=== PATIENT | female | born 1955 ===

== ENCOUNTER 2017-12-16 22:41 | Emergency (ER) | payer MEDICARE ==
[2017-12-16 22:47] VITALS: PULSE 63; O2SAT 98
[2017-12-16 23:53] LABS: ALB/GLOB RATIO 1.3 (1.0-2.1); ALT/SGPT 43 U/L (9-52); AST/SGOT 53 U/L (14-36); BLOOD UREA NITROGEN 22 mg/dl (7-17); CALCIUM 9.5 mg/dL (8.4-10.2); GFR AFRICAN-AMERICAN > 60; GFR NON-AFRICAN AMERICAN > 60
[2017-12-16 23:54] LABS: HEMOGLOBIN 13.2 g/dL (12.0-16.0); MEAN CELL VOLUME 102.7 fl (81.0-99.0); MEAN CORPUSCULAR HEMOGLOBIN 35.9 pg (27.0-31.0); MEAN CORPUSCULAR HGB CONC 34.9 g/dL (33.0-37.0); RBC 3.69 Mil/uL (3.80-5.20); RED CELL DISTRIBUTION WIDTH 12.9 % (11.5-14.5); WHITE BLOOD COUNT 3.9 K/uL (4.8-10.8)
[2017-12-16 23:58] LABS: SQUAMOUS EPITHIAL < 1 /hpf (0-5); URINE BILIRUBIN NEGATIVE (NEGATIVE); URINE BLOOD NEGATIVE (NEGATIVE); URINE CLARITY CLEAR (Clear); URINE COLOR YELLOW (YELLOW); URINE GLUCOSE (UA) NEG (Normal); URINE LEUKOCYTE ESTERASE NEG Leu/uL (Negative); URINE PROTEIN NEGATIVE (NEGATIVE)
[2017-12-17 00:10] LABS: BARBITURATES, UR NEGATIVE (NEGATIVE); BENZODIAZEPINES, UR NEGATIVE (NEGATIVE); OPIATES, UR NEGATIVE (NEGATIVE); PHENCYCLIDINE, UR NEGATIVE (NEGATIVE)
[2017-12-17] MEDS ORDERED: Potassium Chloride 10 mEq ER Tab PO STA (03:14)
[2017-12-17] MEDS ORDERED: Potassium Chloride 20 mEq ER Tab PO ONE (03:48)
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
[2017-12-17 04:54] VITALS: BP 166/73; RESP 18; TEMP 97.8
--- NOTE | 2017-12-17 08:39 | RAD ---
[place] [facility] [place]: No prior. FINDINGS: LUNGS: Trace fibrotic changes in the right apex. No acute infiltrate bilaterally. PLEURA: No significant pleural effusion identified, no pneumothorax apparent. CARDIOVASCULAR: Normal. OSSEOUS STRUCTURES: No significant abnormalities. VISUALIZED UPPER ABDOMEN: Normal. OTHER FINDINGS: None. IMPRESSION: Trace right apical fibrotic changes. Remaining lung diaz clear. No acute cardiopulmonary changes grossly evident.
--- NOTE | 2017-12-17 09:44 | CARD ---
APPROVED REPORT EKG Measurement Heart [id number] <Conclusion> Sinus bradycardia with 1st degree AV block Possible septal infarct, age undetermined Abnormal ECG
== END 2017-12-17 05:02 | disposition home or self-care (01) ==
LOC: H.ER 22:41
DX: F20.9 Schizophrenia, unspecified (principal); E78.00 Pure hypercholesterolemia, unspecified; I10 Essential (primary) hypertension; J45.909 Unspecified asthma, uncomplicated

== ENCOUNTER 2018-02-17 16:05 | Inpatient (IN) | payer MEDICARE ==
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
[2018-02-17 17:18] LABS: BASO % 0.6 % (0.0-2.0); EOS # 0.1 K/uL (0.0-0.7); EOS % 3.1 % (0.0-4.0); HEMOGLOBIN 13.6 g/dL (12.0-16.0); LYMPH # 1.5 K/uL (1.0-4.3); LYMPH % 35.7 % (20.0-40.0); MEAN CELL VOLUME 102.3 fl (81.0-99.0); MEAN CORPUSCULAR HEMOGLOBIN 34.7 pg (27.0-31.0); MEAN CORPUSCULAR HGB CONC 33.9 g/dL (33.0-37.0); MEAN PLATELET VOLUME 10.2 fl (7.2-11.7); MONO # 0.4 K/uL (0.0-0.8); MONO % 9.4 % (0.0-10.0); NEUT # 2.2 K/uL (1.8-7.0); NEUT % 51.2 % (50.0-75.0); RBC 3.92 Mil/uL (3.80-5.20); RED CELL DISTRIBUTION WIDTH 13.3 % (11.5-14.5); WHITE BLOOD COUNT 4.2 K/uL (4.8-10.8)
[2018-02-17 17:21] LABS: ALB/GLOB RATIO 1.2 (1.0-2.1); ALBUMIN 4.1 g/dL (3.5-5.0); ALT/SGPT 29 U/L (9-52); AST/SGOT 44 U/L (14-36); BLOOD UREA NITROGEN 22 mg/dl (7-17); CALCIUM 9.8 mg/dL (8.4-10.2); GFR AFRICAN-AMERICAN > 60; GFR NON-AFRICAN AMERICAN > 60
[2018-02-17 17:39] LABS: BARBITURATES, UR NEGATIVE (NEGATIVE); BENZODIAZEPINES, UR NEGATIVE (NEGATIVE); OPIATES, UR POSITIVE (NEGATIVE); PHENCYCLIDINE, UR NEGATIVE (NEGATIVE)
[2018-02-17] MEDS ORDERED: Potassium Chloride 20 mEq ER Tab PO STA (17:45)
[2018-02-17 20:19] VITALS: O2SAT 98
[2018-02-17] MEDS ORDERED: Magnesium Hydroxide Susp 30 ml UD PO PRN (21:43)
[2018-02-17] MEDS ORDERED: Alum-Mag Hydrox-Simethicone Susp (30 mL) PO PRN (21:43)
[2018-02-17] MEDS ORDERED: Bismuth Subsalicylate 262 mg/15 ml Sus (240 ml) PO PRN (21:43)
--- NOTE | 2018-02-17 22:06 | PCM.BM ---
Treatment Plan Problems - Problems identified on initial assessmt Delusions Date Initiated: 02/17/18 Time Initiated: 22:04 Assessment reference: NA Status: Active Medication nonadherence Date Initiated: 02/17/18 Time Initiated: 22:04 Assessment reference: NA Status: Active Treatment assets and liabiliti Patient Assests: self-reliant, ADL independent, negotiates basic needs Patient Liabilities: live alone, medical problems - Milieu Protocol Maintain good personal hygiene: every shift Encourage regular showers, every shift Remind patient to perform daily oral care, every shift Assist patient to perform ADL's Maintain personal safety: daily Educate patient to report safety concerns to staff, daily Monitor environment for contraband/sharps Medication safety: Monitor for expected outcome, potential side effects: daily, Assess barriers to learning: daily, Assess readiness for medication education: daily
[2018-02-17] MEDS ORDERED: ADVAIR INH PRN (22:54)
[2018-02-17] MEDS ORDERED: Albuterol HFA 90 mcg/actuation (8 g) IH PRN (22:54)
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
[2018-02-18] MEDS ORDERED: Potassium Chloride 20 mEq ER Tab PO ONE (00:29)
[2018-02-18 06:15] VITALS: BP 191/78; PULSE 59
[2018-02-18 06:25] VITALS: RESP 19; TEMP 98.1
[2018-02-18] MEDS ORDERED: PRO AIR HFA 8.5GM INHALER(FOR OR USE ONLY) IH PRN (07:00)
[2018-02-18 07:26] LABS: BLOOD UREA NITROGEN 22 mg/dl (7-17); CALCIUM 9.6 mg/dL (8.4-10.2); GFR AFRICAN-AMERICAN > 60; GFR NON-AFRICAN AMERICAN > 60; HDL CHOLESTEROL 104 MG/DL (30-70)
[2018-02-18 07:45] LABS: IRON 86 ug/dL (37-170)
[2018-02-18 07:56] LABS: % IRON SATURATION 27 % (20-55); TOTAL IRON BINDING CAPACITY 316 ug/dL (250-450)
[2018-02-18 07:57] LABS: LDL CHOLESTEROL 47 mg/dL (0-129)
[2018-02-18 08:07] LABS: T4 11.6 ug/dl (5.5-11.0)
[2018-02-18] MEDS ORDERED: Fluticasone-Salmeterol 250-50mcg Diskus INH SCH (09:00)
[2018-02-18] MEDS ORDERED: Lidocaine 2% GEL TOP SCH (09:00)
[2018-02-18] MEDS ORDERED: Lidocaine 2.5% OINTMENT EXT SCH (09:00)
--- NOTE | 2018-02-18 09:34 | PCM.PYCHDC ---
Discharge Summary - Discharge Note Reason for Hospitalization: Patient was discharged to the ER for acute medical management before being evaluated by lead technical writer. Patient had a critical Troponin 0.2860. As per initial HPI: Attending: Ayush King MD PMD: Dr Sanchez/Terese Alcala Reason for Consult: management of HTN/Migraine Chief Complaint: Paranoid Behavior The patient was seen and examined in the Psychiatric unit HPI: The Hx is obtained from the medical records and the patient. She is a 62 years old female living alone with hx of HTN, Asthma and Migraine, who sent to the ED by the [place] police Department for Psychiatric evaluation. The PD was called to the home because the patient was reporting being harassed. they intercept her calls, put devices in her bed making it shake when she lie on it and despite changing the lock, they enter her apartment. She admitted that no one else could hear or see the harassers. No complaints of nausea, vomits, Chest Pain , SOb nor fever. PMH: Asthma, HTN, Hypercholesterolemia, Migraine; non compliant with mediction PSH: Endartectomy SH: No alcohol ingestion, No illegal drug use; No smoking; Live alone FH: States: Unknown Family Hx Allergies: Chocolate Flavor; Nuts; Shell fish Medication: Reviewed Laboratory Data: Abnormal Lab Results 02/17/18 02/17/18 02/17/18 17:05 17:05 17:05 WBC 4.2 L RBC 3.92 Hgb 13.6 Hct 40.1 MCV 102.3 H MCH 34.7 H MCHC 33.9 RDW 13.3 Plt Count 128 L MPV 10.2 Neut % (Auto) 51.2 Lymph % (Auto) 35.7 [place] % (Auto) 9.4 Eos % (Auto) 3.1 Baso % (Auto) 0.6 Neut # (Auto) 2.2 Lymph # (Auto) 1.5 [place] # (Auto) 0.4 Eos # (Auto) 0.1 Baso # (Auto) 0.0 Sodium 142 Potassium 3.1 L Chloride 103 Carbon Dioxide 33 H Anion Gap 9 L BUN 22 H Creatinine 0.7 Est GFR ( Amer) > 60 Est GFR (Non-Af Amer) > 60 Random Glucose 78 Calcium 9.8 Phosphorus 3.6 Magnesium 1.7 Iron TIBC % Saturation Ferritin Total Bilirubin 0.8 AST 44 H ALT 29 Alkaline Phosphatase 84 Troponin I Total Protein 7.5 Albumin 4.1 Globulin 3.4 Albumin/Globulin Ratio 1.2 Triglycerides Cholesterol LDL Cholesterol Direct HDL Cholesterol Vitamin B12 Thyroxine (T4) TSH 3rd Generation Urine Opiates Screen Positive H Urine Methadone Screen Negative Ur Barbiturates Screen Negative Ur Phencyclidine Scrn Negative Ur Amphetamines Screen Negative U Benzodiazepines Scrn Negative U Oth Cocaine Metabols Negative U Cannabinoids Screen Negative Alcohol, Quantitative < 10 02/18/18 02/18/18 06:30 06:30 WBC RBC Hgb Hct MCV MCH MCHC RDW Plt Count MPV Neut % (Auto) Lymph % (Auto) [place] % (Auto) Eos % (Auto) Baso % (Auto) Neut # (Auto) Lymph # (Auto) [place] # (Auto) Eos # (Auto) Baso # (Auto) Sodium 143 Potassium 3.5 L Chloride 103 Carbon Dioxide 34 H Anion Gap 10 BUN 22 H Creatinine 0.7 Est GFR ( Amer) > 60 Est GFR (Non-Af Amer) > 60 Random Glucose 80 Calcium 9.6 Phosphorus Magnesium Iron 86 TIBC 316 % Saturation 27 Ferritin 117.0 Total Bilirubin AST ALT Alkaline Phosphatase Troponin I 0.2860 H* Total Protein Albumin Globulin Albumin/Globulin Ratio Triglycerides 29 Cholesterol 187 LDL Cholesterol Direct 47 HDL Cholesterol 104 H Vitamin B12 969 H Thyroxine (T4) 11.6 H TSH 3rd Generation 2.69 Urine Opiates Screen Urine Methadone Screen Ur Barbiturates Screen Ur Phencyclidine Scrn Ur Amphetamines Screen U Benzodiazepines Scrn U Oth Cocaine Metabols U Cannabinoids Screen Alcohol, Quantitative Consultations:: List each consultation separately and include: 1. Reason for request. 2. Findings. 3. Follow-up Summary of Hospital Course include:: 1. Description of specific treatment plan utilized for patients during their course of treatmen. 2. Summarize the time- course for resolution of acute symptoms and/or regressed behaviors. 3. Describe issues identified and worked on during hospitalization. 4. Describe medication utilized. 5. Describe medical problems identified and treated. 6. Reassessment of suicide risk - Final Diagnosis (DSM 5) Condition upon Discharge: STABLE Disposition: Trans to Other Acute Care Hosp
--- NOTE | 2018-02-18 09:34 | PCM.PSYCH ---
Initial Psychiatric Evaluation - Initial Psychiatric Evaluation Patient's Reaction to Hospitalization: Patient was discharged to the ER for acute medical management before being evaluated by insurance writer. Patient had a critical Troponin 0.2860. As per initial HPI: Attending: Ayush King MD PMD: Dr Sanchez/Terese Alcala Reason for Consult: management of HTN/Migraine Chief Complaint: Paranoid Behavior The patient was seen and examined in the Psychiatric unit HPI: The Hx is obtained from the medical records and the patient. She is a 62 years old female living alone with hx of HTN, Asthma and Migraine, who sent to the ED by the [place] police [employer] for Psychiatric evaluation. The PD was called to the home because the patient was reporting being harassed. they intercept her calls, put devices in her bed making it shake when she lie on it and despite changing the lock, they enter her apartment. She admitted that no one else could hear or see the harassers. No complaints of nausea, vomits, Chest Pain , SOb nor fever. PMH: Asthma, HTN, Hypercholesterolemia, Migraine; non compliant with mediction PSH: Endartectomy SH: No alcohol ingestion, No illegal drug use; No smoking; Live alone FH: States: Unknown Family Hx Allergies: Chocolate Flavor; Nuts; Shell fish Medication: Reviewed Current Medications: Active Medications Generic Name Dose Route Start Last Admin Trade Name Freq PRN Reason Stop Dose Admin Acetaminophen 650 mg 02/17/18 21:43 Tylenol 325mg Tab PO Q4 PRN Pain, moderate (4-7) Al Hydrox/Mg Hydrox/Simethicone 30 ml 02/17/18 21:43 Maalox Plus 30 Ml PO Q4 PRN Dyspepsia Albuterol Sulfate 1 puff 02/18/18 07:00 Proair Hfa IH Q6 PRN Shortness of Breath Atorvastatin Calcium 10 mg 02/18/18 09:00 02/18/18 08:36 Lipitor PO 10 mg DAILY BOGDAN Administration Bismuth Subsalicylate 524 mg 02/17/18 21:43 Pepto-Bismol PO Q4 PRN Diarrhea Enoxaparin Sodium 60 mg 02/18/18 09:45 Lovenox SC Q12 BOGDAN Protocol Lidocaine HCl 1 applic 02/18/18 09:00 Xylocaine 2% TOP DAILY BOGDAN Lorazepam 0.5 mg 02/17/18 21:43 Ativan PO 07/08/18 21:44 HS PRN Insomnia Lorazepam 0.5 mg 02/17/18 21:43 Ativan PO 03/03/18 21:44 Q6 PRN Anixety/Agitation Losartan Potassium 50 mg 02/18/18 09:00 02/18/18 06:12 Cozaar PO 50 mg DAILY BOGDAN Administration Magnesium Hydroxide 30 ml 02/17/18 21:43 Milk Of Magnesia PO HS PRN Constipation Montelukast Sodium 10 mg 02/18/18 00:29 02/18/18 01:23 Singulair PO 10 mg HS BOGDAN Administration Fluticasone/Salmeterol 1 puff 02/18/18 09:00 Advair Diskus 250/50 INH Q12 BOGDAN Topiramate 50 mg 02/17/18 23:15 02/18/18 01:26 Topamax PO Not Given BID BOGDAN Past Psychiatric History - Past Psychiatric History Pertinent Medical Hx (Current Medical&Sleep Prob, Allergies): Allergies Allergy/AdvReac Type Severity Reaction Status Date / Time chocolate flavor Allergy RASH Verified 02/18/18 08:53 nut - unspecified Allergy RASH Verified 02/18/18 08:53 shellfish derived Allergy RASH Verified 02/18/18 08:53 Advair Diskus 250/50 1 puff INH PRN PRN 01/18/15 Albuterol Sulfate [Ventolin Hfa] 0.09 mg IH Q6 #1 inhaler 01/18/15 Atropine/Diphenoxylate [Lomotil 0.025-2.5 mg tablet] 1 tab PO BID PRN 02/17/18 Lidocaine 5% [Lidocaine] 1 appl TP DAILY 02/17/18
[2018-02-18] MEDS ORDERED: Enoxaparin 60 mg Syringe SC SCH (09:45)
--- NOTE | 2018-02-18 10:41 | RAD ---
HISTORY: psychosis COMPARISON: No prior. FINDINGS: LUNGS: No active pulmonary disease. PLEURA: No significant pleural effusion identified, no pneumothorax apparent. CARDIOVASCULAR: Mild cardiomegaly not completely excluded although tandem magnification may be in effect. No pulmonary vascular congestion. Calcified lymph nodes or granulomata are seen at the left hilar region, potentially the right infrahilar space. OSSEOUS STRUCTURES: No significant abnormalities. VISUALIZED UPPER ABDOMEN: Normal. OTHER FINDINGS: None. IMPRESSION: No interval acute cardiopulmonary disease appreciated. Potential limited cardiomegaly unchanged. No pulmonary vascular congestion. Small calcified lymph nodes or granulomata are seen the bilateral hilar regions.
--- NOTE | 2018-02-18 10:57 | CARD ---
APPROVED REPORT EKG Measurement Heart [id number] [place] [id number] <Conclusion> Sinus bradycardia with 1st degree AV block Otherwise normal ECG
--- NOTE | 2018-02-18 11:07 | CARD ---
APPROVED REPORT EKG Measurement Heart [id number] [place] [id number] [id number] <Conclusion> Sinus rhythm with 1st degree AV block Septal infarct, age undetermined Abnormal ECG
[2018-02-18 12:46] LABS: FOLATE > 20.0 ng/mL
== END 2018-02-18 08:40 | disposition short-term general hospital (02) | DRG 885 ==
LOC: H.ER 16:05 → H.ERHOLD 18:35 → H.STEP 21:28
PROVIDERS: ADMIT Psychiatry & Neurology Psychiatry; ATTEND Psychiatry & Neurology Psychiatry
DX: F29 Unspecified psychosis not due to a substance or known physiological condition (principal); F22 Delusional disorders; G43.909 Migraine, unspecified, not intractable, without status migrainosus; I10 Essential (primary) hypertension; I44.0 Atrioventricular block, first degree; J45.909 Unspecified asthma, uncomplicated; Z79.51 Long term (current) use of inhaled steroids; Z91.19 Patient's noncompliance with other medical treatment and regimen; D69.6 Thrombocytopenia, unspecified; E78.00 Pure hypercholesterolemia, unspecified; E86.0 Dehydration; E87.6 Hypokalemia; R79.89 Other specified abnormal findings of blood chemistry